=== PATIENT | male | born 2000 | race African-American/Black ===

== ENCOUNTER → 2019-05-08 | Emergency (ER) | payer MEDICAID, OTHER ==
[~2019-05-08] VITALS: Ht 185.4 cm; Wt 74.8 kg
[~2019-05-08] MED LIST: LORazepam 0.5 MG TAB PO ONE
[2019-05-08 07:31] VITALS: BP 133/81
== END | disposition home or self-care (01) ==
LOC: EDBD 07:17 → ER 07:17
DX: F41.9 Anxiety disorder, unspecified (principal)